=== PATIENT | male | born 1960 | race Asian ===

== ENCOUNTER 2017-06-30 06:14 | Day surgery (SDC) | payer OTHER ==
[~2017-06-30] VITALS: Ht 180.3 cm; Wt 96.1 kg
[2017-06-30] MEDS ORDERED: glipizide (06:59)
[2017-06-30] MEDS ORDERED: losartan (06:59)
[2017-06-30] MEDS ORDERED: simvastatin (06:59)
[2017-06-30] MEDS ORDERED: aspirin (06:59)
[2017-06-30] MEDS ORDERED: amlodipine (06:59)
[2017-06-30] MEDS ORDERED: januvia (06:59)
[2017-06-30] MEDS ORDERED: metformin (06:59)
[2017-06-30 07:01] VITALS: Ht 180.3 cm; Wt 96.1 kg
[2017-06-30 07:38] VITALS: BP 130/85; PULSE 80; RESP 18
[2017-06-30] MEDS ORDERED: PROPOFOL 40 ML ONE (07:41)
[2017-06-30] MEDS ORDERED: FENTAnyl 50 MCG/ML VIAL ONE (07:41)
[2017-06-30] MEDS ORDERED: LIDOCAINE 100 MG SYRINGE ONE (07:41)
[2017-06-30] MEDS ORDERED: ONDANSETRON 4 MG INJ ONE (07:42)
[2017-06-30 09:07] VITALS: BP 122/82; RESP 18
--- NOTE | 2017-06-30 09:36 | OPPN ---
Date/Time of Note Date/Time of Note DATE: 06/30/17 TIME: 09:35 Operative Report Preoperative Diagnosis Screening colonoscopy Postoperative Diagnosis Multiple colon polyps Operation/Procedure Performed Colonoscopy biopsy and polypectomy Surgeon see signature line topographical field assistant None Anesthesia: MAC Estimated blood loss: none Transfusion Required none Specimen Colon polyps Grafts/Implants none Complications none MALLY YOUNG MD Jun 30, 2017 09:36
--- NOTE | 2017-06-30 11:40 | GILP ---
DATE OF PROCEDURE: NAME OF PROCEDURES: Colonoscopy, biopsy and polypectomy. SURGEON: Mally Almonte MD PREOPERATIVE DIAGNOSIS: Screening colonoscopy. POSTOPERATIVE DIAGNOSES: 1. Colonoscopy all the way to the cecum. 2. Poor prep making the exam somewhat suboptimal. 3. The patient had multiple polyps and 2 of them were removed using the snare and electrocautery an d others with biopsy forceps. 4. Internal hemorrhoids. INDICATION FOR THE PROCEDURE: Mr. Trae Todd is a 56-year-old male patient who was schedu led for screening colonoscopy. The procedure and possible complications were well explained to the patient. The patient understood and consented to the procedure. DESCRIPTION OF PROCEDURE: Under the influence of anesthesia, the colonoscope was carefully introduc ed in the rectum and under direct vision, it was advanced all the way to the cecum. FINDINGS: The patient had multiple colon polyps and 2 of them were removed using the snare and elec trocautery and others with biopsy forceps. The patient was noted to have internal hemorrhoids. He had poor prep making the exam suboptimal. He tolerated the procedure very well and there was no complication from the procedure. At the end o f the procedure, he was awake with stable vital signs and he was discharged home to the care of his family. IMPRESSION: Please see postoperative diagnosis. PLAN: 1. Await histopathology report. 2. Because of the poor prep and because of the fact he had multiple polyps, he will need repeat col onoscopy in 2 to 3 years. Dictated By: MALLY DUNAWAY/EDUAR Conf#: [id number] DID#: [id number]
== END 2017-06-30 16:52 | disposition home or self-care (01) ==
LOC: GIL 06:14
PROVIDERS: ATTEND Internal Medicine Gastroenterology
DX: Z12.11 Encounter for screening for malignant neoplasm of colon (principal); K63.5 Polyp of colon; K64.8 Other hemorrhoids; I10 Essential (primary) hypertension; E11.9 Type 2 diabetes mellitus without complications
CPT/HCPCS: 45380; 45385; 82962; 88305; J2001; J2405; J3010